=== PATIENT | male | born 1970 | race Caucasian/White ===

== ENCOUNTER 2017-03-20 16:56 | Emergency (ER) | payer BC, MEDICAID ==
[~2017-03-20] VITALS: Ht 167.6 cm; Wt 78.0 kg
[~2017-03-20 16:56] MED LIST: ACET1TAB40 PO; AMO500 PO; IBUP-1542 PO; IBUP400T22 PO; OSLT75C PO
[2017-03-20 16:58] VITALS: Ht 167.6 cm; Wt 78.0 kg
--- NOTE | 2017-03-20 17:13 | ERD ---
ER Documentation Chief Complaint Date/Time DATE: 03/20/17 TIME: 17:06 Chief Complaint BIB SELF C/O SORE THROAT SINCE YESTERDAY. DENIES FEVER HPI This 47-year-old male patient presents with 24-hour history of sore throat, patient reports symptoms any, pain with swallowing, patient is able to eat and drink without deficit but reports pain with doing so. Denies any R otalgia or jaw pain. Patient denies runny nose, sinus pressure, postnasal drip or cough. Patient denies fever or chills. Patient has been using [id number] lozenges for symptomatic relief with minimal relief of symptoms. Patient works as a recycler forklift driver truck driver is around many sick contacts, denies history of smoking, asthma , has not had any antibiotics in the last 3 months ROS All systems reviewed and are negative except as per history of present illness. Medications Home Meds Active Scripts Pseudoephedrine HCl (Nasal Decongestant) 30 Mg Capsule, 30 MG PO QID for 3 Days , CAP Prov:YURY,CAROLYN 03/20/17 Phenol* (Chloraseptic* Delevan) 177 Ml Delevan.pump, 2 SPRAY MT Q2H Y for SORE THROAT for 7 Days, BOTTLE Prov:YURY,CAROLYN 03/20/17 Ibuprofen* (Motrin*) 400 Mg Tab, 400 MG PO Q6, #30 TAB Prov:MARY MOYER NP 12/17/15 Oseltamivir Phosphate* (Tamiflu*) 75 Mg Capsule, 75 MG PO BID for 5 Days, CAP Prov:MARY MOYER NP 12/17/15 Amoxicillin* (Amoxicillin*) 500 Mg Cap, 500 MG PO TID for 10 Days, CAP Prov:TOSHA OWEN MD 04/11/15 Acetaminophen-Codeine* (Acetaminophen-Cod #3*) 300-30 Mg Tab, 1 TAB PO Q4H Y for PAIN, #10 TAB Prov:TOSHA OWEN MD 04/11/15 Ibuprofen* (Motrin*) 600 Mg Tab, 600 MG PO Q6, #14 TAB Prov:TOSHA OWEN MD 04/11/15 PMhx/Soc History of Surgery: No Hx Neurological Disorder: No Hx Respiratory Disorders: No Hx Cardiac Disorders: No Hx Psychiatric Problems: No Hx Miscellaneous Medical Probl: No Hx Alcohol Use: No Hx Substance Use: No Hx Tobacco Use: No Physical Exam Vitals Vital Signs Date Time Temp Pulse Resp B/P Pulse Ox O2 Delivery O2 Flow Rate FiO2 03/20/17 16:58 98.4 90 20 152/87 98 Vitals stable, triage notes reviewed Physical Exam Const: Well nourished, well hydrated, no acute distress Head: Atraumatic Eyes: Normal Conjunctiva, PERRLA, EOMI ENT: Tympanic membranes bilaterally dull, nasal mucosa moist, turbinates +1, septum midline no bleeding points no maxillary or frontal sinus tenderness. Pharynx pink moist no exudate, uvula midline not elongated, no shift, rises and falls with pronation, tongue is midline, mucous membranes moist. Neck: Full range of motion..~ No meningismus. No cervical chain no Resp: Clear to auscultation bilaterally, no rales wheezes or rhonchi Cardio: Abd: Soft, non tender, non distended. No epigastric tenderness Skin: No petechiae or rashes Back: Ext: Neur: Awake and alert Psych: Normal Mood and Affect Procedures/MDM This pleasant 47-year-old male patient comes into emergency department for 24 hour history of sore throat. Patient reports using [id number]-qym-iagrorv lozenges for symptomatic relief of sore throat pain with little relief of symptoms, patient reports he is able to eat and drink without deficit denies fever, chills , photosensitivity, neck pain, nausea or vomiting. Meningitis, strep pharyngitis, rheumatic fever not suspected. Patient presents with history and physical exam findings of a viral sore throat, patient given prescription for Chloraseptic spray use every 3 hours as needed for sore throat pain. Sudafed 30 mg 1 tab p.o. 4 times daily for throat congestion, Tylenol or Motrin for pain relief, increase fluids, increase rest, saltwater gargles and hot tea may improve sore throat symptoms as well. I feel the patient is stable for discharge at this time outpatient follow-up by primary care physician. I have discussed results, examination findings, the treatment plan with the patient and family present prior to discharge. Indications for emergent reevaluation fever not responding to treatment, inability to swallow your own saliva, muffled voice, side effects of medication were also discussed. All questions were answered. Patient verbalizes understanding and agrees with plan of care. Departure Diagnosis: Primary Impression: Sore throat Condition: Good Patient Instructions: Self-Care for Sore Throats Additional Instructions: Thank you for for coming to [facility] for your care today. Please ask your nurse or provider if you have questions about your care today and do not leave until all your questions have been answered. Please use any medications given as directed and follow-up with your doctor (or the doctor you were referred to) in the next 2-3 days. If you do not have a primary care doctor you may follow up at the [facility] (listed below). You may also use motrin and tylenol as needed for fever and/or pain unless instructed otherwise by your provider or nurse. Indications for more urgent follow-up have been discussed, but you may return to the Emergency Department at ANY time for any worrisome or worsening symptoms. If you have abdominal pain, please know that no test or exam you received is perfect and you should follow up within 8 hours for continued pain. If you had any imaging studies today, such as an X-Ray or CT Scan, these studies will be reviewed later by a radiologist. You will be called if there are important findings that were not identified today, so make sure the contact information you provided at registration is correct. If you received any narcotic pain control medicine today, such as Vicodin, Morphine or Dilaudid, your coordination and judgment may be affected for a number of hours. Please do not drive or operate heavy machinery, and you may want someone to assist you at home. If you were given a prescription for narcotic medication, be aware that it is very addictive- use sparingly and only if necessary. CAROLYN COTTON Mar 20, 2017 17:13
[2017-03-20] MEDS ORDERED: PHEN177S43 MT (17:14)
[2017-03-20] MEDS ORDERED: PSEU30CA PO (17:19)
== END 2017-03-20 17:20 | disposition home or self-care (01) ==
LOC: E/R 16:56
DX: J02.9 Acute pharyngitis, unspecified (principal)
CPT/HCPCS: 99283

== ENCOUNTER 2017-05-03 22:31 | Emergency (ER) | payer BC ==
[~2017-05-03] VITALS: Ht 170.2 cm; Wt 77.2 kg
[~2017-05-03 22:31] MED LIST changes: +PHEN177S43 MT; +PSEU30CA PO
[2017-05-03 22:39] VITALS: Ht 170.2 cm; Wt 77.2 kg
--- NOTE | 2017-05-03 23:12 | ERA ---
ER Documentation Chief Complaint Date/Time DATE: 05/03/17 TIME: 23:11 Chief Complaint DIZZINESS HPI The patient is a 47-year-old male, presenting to the ER because of intermittent dizziness for 1 month. He was seen by his physician in [facility] about 2 weeks ago who started him on Atacand which made him less dizziness. He has been back to the [place] and wanted to be seen and is currently awaiting for his primary care physician. He denies any dizziness now, denies headache, facial pain, neck pain , chest pain, dyspnea, abdominal pain, vomiting, dysuria, diarrhea. He does not smoke nor drink nor does illicit drug Past medical history: Hypertension Past surgical history: None ROS All systems reviewed and are negative except as per history of present illness. Medications Home Meds Active Scripts Pseudoephedrine HCl (Nasal Decongestant) 30 Mg Capsule, 30 MG PO QID for 3 Days , CAP Prov:YURY,CAROLYN 03/20/17 Phenol* (Chloraseptic* Tofte) 177 Ml Tofte.pump, 2 SPRAY MT Q2H Y for SORE THROAT for 7 Days, BOTTLE Prov:YURY,CAROLYN 03/20/17 Ibuprofen* (Motrin*) 400 Mg Tab, 400 MG PO Q6, #30 TAB Prov:MARY MOYER NP 12/17/15 Oseltamivir Phosphate* (Tamiflu*) 75 Mg Capsule, 75 MG PO BID for 5 Days, CAP Prov:MARY MOYER NP 12/17/15 Amoxicillin* (Amoxicillin*) 500 Mg Cap, 500 MG PO TID for 10 Days, CAP Prov:TOSHA OWEN MD 04/11/15 Acetaminophen-Codeine* (Acetaminophen-Cod #3*) 300-30 Mg Tab, 1 TAB PO Q4H Y for PAIN, #10 TAB Prov:TOSHA OWEN MD 04/11/15 Ibuprofen* (Motrin*) 600 Mg Tab, 600 MG PO Q6, #14 TAB Prov:TOSHA OWEN MD 04/11/15 Allergies Allergies: Coded Allergies: No Known Allergy (Unverified , 05/03/17) PMhx/Soc History of Surgery: No Hx Neurological Disorder: No Hx Respiratory Disorders: No Hx Cardiac Disorders: No Hx Psychiatric Problems: No Hx Miscellaneous Medical Probl: No Hx Alcohol Use: No Hx Substance Use: No Hx Tobacco Use: No Physical Exam Vitals Vital Signs Date Time Temp Pulse Resp B/P Pulse Ox O2 Delivery O2 Flow Rate FiO2 05/03/17 22:39 96.9 97 18 135/65 99 Physical Exam Const: No acute distress. Head: Atraumatic. Eyes: Normal Conjunctiva. ENT: Normal External Ears, Nose and Mouth. Bilateral tympanic membranes are within normal limit Neck: Full range of motion. No meningismus. Resp: Clear to auscultation bilaterally. Cardio: Regular rate and rhythm. Abd: Soft, non distended, normal bowel sounds, non tender. Skin: No petechiae or rashes. Back: No midline or flank tenderness. Ext: No cyanosis, or edema. Neur: Awake and alert. No focal deficit Psych: Normal Mood and Affect. Result Diagram: 05/03/174 05/03/174 Results 24 hrs Laboratory Tests Test 05/03/17 23:54 White Blood Count 9.610^3/ul Red Blood Count 4.7910^6/ul Hemoglobin 15.2g/dl Hematocrit 44.1% Mean Corpuscular Volume 92.1fl Mean Corpuscular Hemoglobin 31.7pg Mean Corpuscular Hemoglobin Concent 34.5g/dl Red Cell Distribution Width 12.6% Platelet Count 12480^3/UL Mean Platelet Volume 9.2fl Neutrophils % 64.4% Lymphocytes % 25.1% Monocytes % 8.5% Eosinophils % 1.4% Basophils % 0.3% Nucleated Red Blood Cells % 0.0/100WBC Neutrophils # 6.210^3/ul Lymphocytes # 2.410^3/ul Monocytes # 0.810^3/ul Eosinophils # 0.110^3/ul Basophils # 0.010^3/ul Nucleated Red Blood Cells # 0.010^3/ul Sodium Level 144mmol/L Potassium Level 4.1mmol/L Chloride Level 100mmol/L Carbon Dioxide Level 29mmol/L Anion Gap 19 Blood Urea Nitrogen 16mg/dl Creatinine 0.95mg/dl Glucose Level 106mg/dl Calcium Level 9.3mg/dl [facility] [id number] Radiology Main Line: [phone] DIAGNOSTIC IMAGING REPORT Patient: JULIO CÉSAR RUST : 1970 Age: 47 Sex: M MR #: [id number] DOS: 05/03/17 2336 Ordering MD: KAMERON WOODALL MD Location: [facility] Room/Bed: PROCEDURE: CT BRAIN WITHOUT CONTRAST CLINICAL INDICATION: 47-year-old male with dizziness. TECHNIQUE: The study was performed utilizing a [employer] VCT 64-slice CT scanner. Direct axial sections were obtained from the foramen magnum to the vertex without the use of intravenous contrast material. Sagittal and coronal reformations were obtained. One or more the following dose reduction techniques were utilized: automated exposure control, adjustment of the mA and/or kV according to patient's size or use of iterative reconstruction technique. The images were viewed on a PACS workstation. CTD/vol = 45.0 mGy; Total Exam DLP = 720.2 mGy-cm. COMPARISON: None. FINDINGS: The ventricles have a normal size, shape and position. There is no evidence for mass effect or midline shift. There are no intracranial areas of abnormal attenuation. There is no evidence for acute intra or extra-axial blood. The bony calvarium is intact. There is minimal mucosal thickening within the ethmoid air cells and partially visualized maxillary sinuses. No air-fluid levels are noted. The mastoid air cells are without significant soft tissue. IMPRESSION: 1. The intracranial contents are unremarkable on this noncontrast CT scan of the brain. 2. Minimal mucosal thickening ethmoid air cells and partially visualized maxillary sinuses. .Bertrand Araiza MD, MD Date Time Electronically viewed and signed by .Bertrand Araiza MD, on 05/04/2017 00:40 .M/ CC: KAMERON WOODALL MD EKG: Read by emergency physician Rate/Rhythm: Normal Sinus Rhythm 79 beats/min QRS, ST, T-waves: No ST elevation, no T inversion Impression: Normal EKG MEDICAL MAKING DECISION: The patient is a 47-year-old male, presenting to the ER because of acute intermittent dizziness of unclear etiology. He is stable for outpatient follow-up The differential diagnoses considered include but are not limited to central causes such as cerebellar infarct, cerebellar hemorrhage, cerebellar tumor, acoustic neuroma, peripheral causes such as benign positional vertigo, labyrinthitis, medication, Meniere's disease. Departure Diagnosis: Primary Impression: Dizziness Condition: Good Comments I discussed the findings with the patient. I advised the patient to follow-up with the primary physician in about 1-2 days, sooner if needed and return if any concern. KAMERON WOODALL MD May 03, 2017 23:12
[2017-05-04 00:13] LABS: BASOPHILS % 0.3 % (0.0-2.0); EOSINOPHILS # 0.1 10^3/ul (0.0-0.5); EOSINOPHILS % 1.4 % (0.0-7.0); HEMATOCRIT 44.1 % (42.0-52.0); HEMOGLOBIN 15.2 g/dl (14.0-18.0); LYMPHOCYTES # 2.4 10^3/ul (0.8-2.9); LYMPHOCYTES % 25.1 % (15.0-51.0); MEAN CORPUSCULAR HEMOGLOBIN 31.7 pg (29.0-33.0); MEAN CORPUSCULAR HGB CONC 34.5 g/dl (32.0-37.0); MEAN CORPUSCULAR VOLUME 92.1 fl (82.0-101.0); MEAN PLATELET VOLUME 9.2 fl (7.4-10.4); MONOCYTE # 0.8 10^3/ul (0.3-0.9); MONOCYTES % 8.5 % (0.0-11.0); NEUTROPHIL # 6.2 10^3/ul (1.6-7.5); NEUTROPHILS % 64.4 % (39.0-77.0); PLATELET COUNT 276 10^3/UL (140-415); RED BLOOD COUNT 4.79 10^6/ul (4.70-6.10); RED CELL DISTRIBUTION WIDTH 12.6 % (11.5-14.5); WHITE BLOOD COUNT 9.6 10^3/ul (4.8-10.8)
[2017-05-04 00:36] LABS: CALCIUM 9.3 mg/dl (8.4-10.2); CREATININE 0.95 mg/dl (0.61-1.24); POTASSIUM 4.1 mmol/L (3.5-5.1)
--- NOTE | 2017-05-04 00:41 | RADRPT ---
PROCEDURE: CT BRAIN WITHOUT CONTRAST CLINICAL INDICATION: 47-year-old male with dizziness. TECHNIQUE: The study was performed utilizing a [employer] VCT 64-slice CT scanner. Direct axia l sections were obtained from the foramen magnum to the vertex without the use of intravenous contra st material. Sagittal and coronal reformations were obtained. One or more the following dose reduct ion techniques were utilized: automated exposure control, adjustment of the mA and/or kV according t o patient's size or use of iterative reconstruction technique. The images were viewed on a PACS [employer]. CTD/vol = 45.0 mGy; Total Exam DLP = 720.2 mGy-cm. COMPARISON: None. FINDINGS: The ventricles have a normal size, shape and position. There is no evidence for mass effect or midl ine shift. There are no intracranial areas of abnormal attenuation. There is no evidence for acute intra or extra-axial blood. The bony calvarium is intact. There is minimal mucosal thickening withi n the ethmoid air cells and partially visualized maxillary sinuses. No air-fluid levels are noted. The mastoid air cells are without significant soft tissue. IMPRESSION: 1. The intracranial contents are unremarkable on this noncontrast CT scan of the brain. 2. Minimal mucosal thickening ethmoid air cells and partially visualized maxillary sinuses. .Bertrand Araiza MD, Date Time Electronically viewed and signed by .Bertrand Araiza MD, on 05/04/2017 00:40 .M/
[2017-05-04] MEDS ORDERED: CAND32TA2 PO (02:27)
[2017-05-04 02:30] VITALS: BP 145/90; PULSE 90; RESP 20
== END 2017-05-04 02:30 | disposition home or self-care (01) ==
LOC: FTE 22:31
DX: R42 Dizziness and giddiness (principal); I10 Essential (primary) hypertension
CPT/HCPCS: 36415; 70450; 80048; 85025; 93005; Z7502